=== PATIENT | female | born 1985 | race Caucasian/White ===

== ENCOUNTER 2017-09-18 16:41 | Emergency (ER) | payer OTHER ==
[~2017-09-18] VITALS: Ht 160 cm; Wt 44.5 kg
[~2017-09-18 16:41] MED LIST: OXYC-360 PO; SULF1TAB47 PO
[2017-09-18 16:42] VITALS: BP 139/79; PULSE 96; RESP 20; TEMP 99.2; O2SAT 100
[2017-09-18] MEDS ORDERED: METO25TA3 PO (17:05)
[2017-09-18] MEDS ORDERED: DIAZ2TAB PO (17:05)
[2017-09-18] MEDS ORDERED: NORE0.3514 PO (17:05)
[2017-09-18] MEDS ORDERED: SACC1CAP3 PO (17:05)
[2017-09-18] MEDS ORDERED: SODIUM CHLORIDE 0.9% FLUSH 10 ML FLUSH IVF PRN (17:30)
--- NOTE | 2017-09-18 18:05 | PD ---
HPI . Chest Pain Chief Complaint: Cardiac Complaint Time Seen by Provider: 17:17 Travel History International Travel<30 days: No Contact w/Intl Traveler<30days: No Traveled to known affect area: No History of Present Illness HPI 32 year old female presents to the emergency department for evaluation of chest pain that radiates from her left shoulder across the chest towards her sternum. Patient has no major medical history until 6 months ago when she had a cholecystectomy and subsequently developed pancreatitis. Patient is followed by [facility] for hyper bilirubinemia and they can't find an etiology per the patient' s report. The patient states she started developing chest pain and was hospitalized and put on metoprolol. Patient states the pain is throbbing in sensation and causes mild shortening of her breath. Patient denies any fever, chills, nausea, vomiting, abdominal pain, lightheadedness. She denies any injuries to the left shoulder and has full range of motion. Patient denies any recent traumas, falls. PFSH Past Medical History Cancer: No Cardiovascular Problems: No Endocrine: No Genitourinary: No Immune Disorder: No Musculoskeletal: No Neurologic: No Psychiatric: No Reproductive: No Respiratory: No ?: Not LMP: CURRENT : 1 Para: 1 Past Surgical History Section: Yes Cholecystectomy: Yes Gynecologic Surgery: Yes (C SECTION 08/25/11) Social History Alcohol Use: No Tobacco Use: No Substance Use: No Allergies-Medications (Allergen,Severity, Reaction): Coded Allergies: No Known Allergies (Verified , 09/07/11) Reported Meds & Prescriptions Reported Meds & Active Scripts Active Reported Abbie-35 (Norethindrone) 0.35 Mg Tab 1 Tab PO DAILY Diazepam 2 Mg Tab 2 Mg PO HS PRN Probiotic (Saccharomyces Boulardii) 250 Mg Cap 250 Mg PO DAILY Metoprolol Tartrate 25 Mg Tab 12.5 Mg PO BID Review of Systems Except as stated in HPI: all other systems reviewed are Neg Physical Exam Narrative GENERAL: Well-nourished, well-developed 32-year-old female patient in no acute distress. Nontoxic appearing. SKIN: Focused skin assessment warm/dry. HEAD: Normocephalic. Atraumatic. EYES: No scleral icterus. No injection or drainage. NECK: Supple, trachea midline. No JVD or lymphadenopathy. CARDIOVASCULAR: Regular rate and rhythm without murmurs, gallops, or rubs. RESPIRATORY: Breath sounds equal bilaterally. No accessory muscle use. GASTROINTESTINAL: Abdomen soft, non-tender, nondistended. MUSCULOSKELETAL: No cyanosis, or edema. Data Data Last Documented VS Vital Signs Date Time Temp Pulse Resp B/P (MAP) Pulse Ox O2 Delivery O2 Flow Rate FiO2 09/18/17 19:03 67 16 124/61 (82) 98 Room Air 09/18/17 16:42 99.2 Orders Orders Electrocardiogram (09/18/17 17:25) Ckmb (Isoenzyme) Profile (09/18/17 17:25) Complete Blood Count With Diff (09/18/17:25) Comprehensive Metabolic Panel (09/18/17:) Magnesium (Mg) (09/18/17:) Prothrombin Time / Inr (Pt) (09/18/17:) Act Partial Throm Time (Ptt) (09/18/17:) Troponin I (09/18/17:) Chest, Single Ap (09/18/17:25) Ecg Monitoring (09/18/17 17:25) Bilateral Bp Monitoring (09/18/17 17:25) Iv Access Insert/Monitor (09/18/17:25) Oximetry (09/18/17:25) Oxygen Administration (09/18/17:25) Sodium Chloride 0.9% Flush (Ns Flush) (09/18/17 17:30) Ed Discharge Order (09/18/17 20:00) Labs Laboratory Tests Test 09/18/17 18:00 White Blood Count 13.0 TH/MM3 Red Blood Count 4.69 MIL/MM3 Hemoglobin 14.5 GM/DL Hematocrit 42.7 % Mean Corpuscular Volume 90.9 FL Mean Corpuscular Hemoglobin 30.8 PG Mean Corpuscular Hemoglobin Concent 33.9 % Red Cell Distribution Width 13.5 % Platelet Count 225 TH/MM3 Mean Platelet Volume 8.6 FL Neutrophils (%) (Auto) 78.5 % Lymphocytes (%) (Auto) 14.5 % Monocytes (%) (Auto) 5.2 % Eosinophils (%) (Auto) 1.1 % Basophils (%) (Auto) 0.7 % Neutrophils # (Auto) 10.2 TH/MM3 Lymphocytes # (Auto) 1.9 TH/MM3 Monocytes # (Auto) 0.7 TH/MM3 Eosinophils # (Auto) 0.1 TH/MM3 Basophils # (Auto) 0.1 TH/MM3 CBC Comment DIFF FINAL Differential Comment Prothrombin Time 10.0 SEC Prothromb Time International Ratio 1.0 RATIO Activated Partial Thromboplast Time 24.3 SEC Blood Urea Nitrogen 12 MG/DL Creatinine 0.68 MG/DL Random Glucose 85 MG/DL Total Protein 7.5 GM/DL Albumin 3.9 GM/DL Calcium Level 8.7 MG/DL Magnesium Level 1.9 MG/DL Alkaline Phosphatase 56 U/L Aspartate Amino Transf (AST/SGOT) 16 U/L Alanine Aminotransferase (ALT/SGPT) 20 U/L Total Bilirubin 0.8 MG/DL Sodium Level 139 MEQ/L Potassium Level 4.2 MEQ/L Chloride Level 107 MEQ/L Carbon Dioxide Level 24.7 MEQ/L Anion Gap 7 MEQ/L Estimat Glomerular Filtration Rate 100 ML/MIN Total Creatine Kinase 64 U/L Troponin I LESS THAN 0.02 NG/ML MDM Medical Decision Making Medical Screen Exam Complete: Yes Emergency Medical Condition: Yes Differential Diagnosis Differential diagnosis include but not limited to coronary event, contusion, sprain Narrative Course 32 year old female presents to the emergency department for evaluation of left sided chest pain that originates at her left shoulder and radiates across her chest to her sternum. CBC, CMP, magnesium, PT/INR, troponin, chest x-ray, EKG ordered and pending. EKG shows sinus rhythm with HR 73. Blood work is unremarkable. Chest x-ray shows no acute findings. Based on patient's symptoms , clinical presentation, lab results, radiological results, vital sign review and physical exam it is not necessary to admit the patient to the hospital or keep the patient in the emergency department for further evaluation. Patient will be discharged home with instructions to return to the emergency department for worsening condition but otherwise follow up with her primary care and wrapper stemmer hand. Last Impressions Chest X-Ray 09/18/17 [id number] Signed Impressions: Service Date/Time: Monday, September 18, 2017 17:40 - CONCLUSION: No acute disease. Meliton Dowling MD Laboratory Tests Test 09/18/17 18:00 White Blood Count 13.0 TH/MM3 Red Blood Count 4.69 MIL/MM3 Hemoglobin 14.5 GM/DL Hematocrit 42.7 % Mean Corpuscular Volume 90.9 FL Mean Corpuscular Hemoglobin 30.8 PG Mean Corpuscular Hemoglobin Concent 33.9 % Red Cell Distribution Width 13.5 % Platelet Count 225 TH/MM3 Mean Platelet Volume 8.6 FL Neutrophils (%) (Auto) 78.5 % Lymphocytes (%) (Auto) 14.5 % Monocytes (%) (Auto) 5.2 % Eosinophils (%) (Auto) 1.1 % Basophils (%) (Auto) 0.7 % Neutrophils # (Auto) 10.2 TH/MM3 Lymphocytes # (Auto) 1.9 TH/MM3 Monocytes # (Auto) 0.7 TH/MM3 Eosinophils # (Auto) 0.1 TH/MM3 Basophils # (Auto) 0.1 TH/MM3 CBC Comment DIFF FINAL Differential Comment Prothrombin Time 10.0 SEC Prothromb Time International Ratio 1.0 RATIO Activated Partial Thromboplast Time 24.3 SEC Blood Urea Nitrogen 12 MG/DL Creatinine 0.68 MG/DL Random Glucose 85 MG/DL Total Protein 7.5 GM/DL Albumin 3.9 GM/DL Calcium Level 8.7 MG/DL Magnesium Level 1.9 MG/DL Alkaline Phosphatase 56 U/L Aspartate Amino Transf (AST/SGOT) 16 U/L Alanine Aminotransferase (ALT/SGPT) 20 U/L Total Bilirubin 0.8 MG/DL Sodium Level 139 MEQ/L Potassium Level 4.2 MEQ/L Chloride Level 107 MEQ/L Carbon Dioxide Level 24.7 MEQ/L Anion Gap 7 MEQ/L Estimat Glomerular Filtration Rate 100 ML/MIN Total Creatine Kinase 64 U/L Troponin I LESS THAN 0.02 NG/ML Diagnosis Primary Impression: Chest pain Qualified Codes: R07.9 - Chest pain, unspecified Referrals: Primary Care Physician Patient Instructions: Chest Pain (ED), General Instructions Additional Instructions: Please return to emergency department if your symptoms return or worsen. Follow up with your primary care provider. Take medications as prescribed. Disposition: 01 DISCHARGE HOME Condition: Stable Barbara Serratoaustin TAVAREZ Sep 18, 2017 18:05
[2017-09-18 18:08] LABS: AUTOMATED NEUTROPHIL # 10.2 TH/MM3 (1.8-7.7); BASOPHIL # 0.1 TH/MM3 (0-0.2); BASOPHIL % 0.7 % (0.0-2.0); EOSINOPHIL # 0.1 TH/MM3 (0-0.4); EOSINOPHIL % 1.1 % (0.0-4.0); HEMATOCRIT 42.7 % (35.0-46.0); HEMO FLAGS DIFF FINAL; LYMPH % 14.5 % (9.0-44.0); LYMPHOCYTE # 1.9 TH/MM3 (1.0-4.8); MEAN CELL VOLUME 90.9 FL (80.0-100.0); MEAN CORPUSCULAR HEMOGLOBIN 30.8 PG (27.0-34.0); MEAN CORPUSCULAR HGB CONC 33.9 % (32.0-36.0); MONO % 5.2 % (0.0-8.0); NEUT % 78.5 % (16.0-70.0); PLATELET COUNT 225 TH/MM3 (150-450); RED BLOOD COUNT 4.69 MIL/MM3 (4.00-5.30); RED CELL DISTRIBUTION WIDTH 13.5 % (11.6-17.2)
[2017-09-18 18:18] LABS: APTT (PATIENT) 24.3 SEC (24.3-30.1)
[2017-09-18 18:34] LABS: ALT (GPT) 20 U/L (10-53)
[2017-09-18 18:38] LABS: ALKALINE PHOSPHATASE 56 U/L (45-117); ANION GAP 7 MEQ/L (5-15); AST (GOT) 16 U/L (15-37); BICARBONATE 24.7 MEQ/L (21.0-32.0); BLOOD UREA NITROGEN 12 MG/DL (7-18); CHLORIDE 107 MEQ/L (98-107); GLOMERULAR FILTRATION RATE 100 ML/MIN (>89); MAGNESIUM 1.9 MG/DL (1.5-2.5); POTASSIUM 4.2 MEQ/L (3.5-5.1); SODIUM (NA) 139 MEQ/L (136-145); TOTAL BILIRUBIN ADULT 0.8 MG/DL (0.2-1.0)
[2017-09-18 18:39] LABS: CREATINE KINASE 64 U/L (26-192)
[2017-09-18 19:03] VITALS: BP 124/61; PULSE 67; RESP 16; O2SAT 98
--- NOTE | 2017-09-18 19:08 | RADRPT ---
EXAM DATE/TIME: 09/18/2017 17:40 [facility] COMPARISON: No previous studies available for comparison. INDICATIONS : Left chest pain. MEDICAL HISTORY : None. SURGICAL HISTORY : None. ENCOUNTER: Initial ACUITY: 1 day PAIN SCORE: 7/10 LOCATION: Left chest FINDINGS: A single view of the chest demonstrates the lungs to be symmetrically aerated without evidence of mas s, infiltrate or effusion. The cardiomediastinal contours are unremarkable. Osseous structures are intact. CONCLUSION: No acute disease. Meliton Dowling MD on September 18, 2017 at 19:06 Board Certified Radiologist. This report was verified electronically.
--- NOTE | 2017-09-18 20:03 | PD ---
Physical Exam Date Seen by Provider: Sep 18, 2017 Time Seen by Provider: 20:01 Narrative 32-year-old female came to the emergency room for atypical chest pain which she describes as a shooting pain from her neck going down to her left arm and then to the left side of her chest going anteriorly under her breasts. This has been happening on and off for a few days. She's been seen by the nurse practitioner. Blood test results of back and they're within normal limits. Chest x-rays negative. My suspicion for coronary artery disease is extremely low on her. Patient in fact was admitted 6 months ago into [facility] for similar symptoms and was seen by dorr operator. Apparently she went into SVT during that time. She is on metoprolol currently. She has a follow-up appointment with her dorr operator on October 09. I've encouraged her to follow up with her primary care and dorr operator. She will be discharged home. Data Data Last Documented VS Orders Orders Electrocardiogram (09/18/17 17:25) Ckmb (Isoenzyme) Profile (09/18/17 17:25) Complete Blood Count With Diff (09/18/17 17:) Comprehensive Metabolic Panel (09/18/17 17:25) Magnesium (Mg) (09/18/17:) Prothrombin Time / Inr (Pt) (09/18/17:) Act Partial Throm Time (Ptt) (09/18/17 17:25) Troponin I (09/18/17 17:25) Chest, Single Ap (09/18/17 17:25) Ecg Monitoring (09/18/17 17:25) Bilateral Bp Monitoring (09/18/17:25) Iv Access Insert/Monitor (09/18/17:25) Oximetry (09/18/17 17:25) Oxygen Administration (09/18/17:25) Sodium Chloride 0.9% Flush (Ns Flush) (09/18/17 17:30) Ed Discharge Order (09/18/17 20:00) Labs Laboratory Tests Test 09/18/17 18:00 White Blood Count 13.0 TH/MM3 Red Blood Count 4.69 MIL/MM3 Hemoglobin 14.5 GM/DL Hematocrit 42.7 % Mean Corpuscular Volume 90.9 FL Mean Corpuscular Hemoglobin 30.8 PG Mean Corpuscular Hemoglobin Concent 33.9 % Red Cell Distribution Width 13.5 % Platelet Count 225 TH/MM3 Mean Platelet Volume 8.6 FL Neutrophils (%) (Auto) 78.5 % Lymphocytes (%) (Auto) 14.5 % Monocytes (%) (Auto) 5.2 % Eosinophils (%) (Auto) 1.1 % Basophils (%) (Auto) 0.7 % Neutrophils # (Auto) 10.2 TH/MM3 Lymphocytes # (Auto) 1.9 TH/MM3 Monocytes # (Auto) 0.7 TH/MM3 Eosinophils # (Auto) 0.1 TH/MM3 Basophils # (Auto) 0.1 TH/MM3 CBC Comment DIFF FINAL Differential Comment Prothrombin Time 10.0 SEC Prothromb Time International Ratio 1.0 RATIO Activated Partial Thromboplast Time 24.3 SEC Blood Urea Nitrogen 12 MG/DL Creatinine 0.68 MG/DL Random Glucose 85 MG/DL Total Protein 7.5 GM/DL Albumin 3.9 GM/DL Calcium Level 8.7 MG/DL Magnesium Level 1.9 MG/DL Alkaline Phosphatase 56 U/L Aspartate Amino Transf (AST/SGOT) 16 U/L Alanine Aminotransferase (ALT/SGPT) 20 U/L Total Bilirubin 0.8 MG/DL Sodium Level 139 MEQ/L Potassium Level 4.2 MEQ/L Chloride Level 107 MEQ/L Carbon Dioxide Level 24.7 MEQ/L Anion Gap 7 MEQ/L Estimat Glomerular Filtration Rate 100 ML/MIN Total Creatine Kinase 64 U/L Troponin I LESS THAN 0.02 NG/ML MDM Supervised Visit with [facility]: Yes Diagnosis Primary Impression: Chest pain Qualified Codes: R07.9 - Chest pain, unspecified Referrals: Primary Care Physician Patient Instructions: General Instructions, Chest Pain (ED) Additional Instruction: Please return to emergency department if your symptoms return or worsen. Follow up with your primary care provider. Take medications as prescribed. Disposition: 01 DISCHARGE HOME Condition: Stable Jazmin Call MD Sep 18, 2017 20:03
--- NOTE | 2017-09-18 22:41 | EKG ---
Date Performed: 09/18/2017 Time Performed: 17:03:31 PTAGE: 32 years EKG: Sinus rhythm WITH SHORT [place] INTERVAL POSSIBLE RIGHT VENTRICULAR CONDUCTION DELAY BORDERLINE ECG Compared to prior tracing no significant change DOCTOR: Leyla Uribe Interpretating Date/Time 09/18/2017 22:40:29
== END 2017-09-18 20:20 | disposition home or self-care (01) ==
LOC: NEPC 16:41
DX: R07.89 Other chest pain (principal); M54.2 Cervicalgia; Z79.899 Other long term (current) drug therapy
CPT/HCPCS: 71010; 80053; 82550; 83735; 84484; 85025; 85610; 85730; 93005; 99285